=== PATIENT | male | born 1945 | race Hispanic/Latino ===

== ENCOUNTER 2020-07-06 18:05 | Observation (INO) | payer MEDICARE ==
[~2020-07-06] VITALS: Ht 170.2 cm; Wt 108.0 kg
[2020-07-06] VITALS: BP 145/71
[~2020-07-06 18:05] MED LIST: ADALAT CC30 MG OR; ALTOPREV20 MG PO; ANTI-FUNGAL12 TOP; ASPIRIN 81 LOW81 MG PO; ASPIRIN EC81 MG PO; BACLOFEN10 MG PO; BACTRIM DS1 TAB PO; BLOOD GLUCOSE TEST S SC; BYDUREON2 MG; COREG6.25 MG PO; DEBROX6.5 % AS; EC-NAPROSYN500 MG PO; FLUCONAZOLE100 MG PO; JANUVIA50 MG PO; KENALOG-4040 MG/ML IA; LISINOPRIL20 M1 PO; LORTAB5 PO; LOSARTAN/HCT1 TA2 PO; LOVASTATIN10 M1 PO; METFORMIN HCL1000 MG PO; METFORMIN500 MG PO; NAPROSYN500 MG PO; NO MEDS; PANTOPRAZOLE SO40 MG PO; PERCOCET 5/325M1 TAB PO; TRIAM/NYSTAT EX; VALSARTAN40 MG PO; [UNRECOGNIZED DRUG - OTHER] PO; statin
[2020-07-06 19:25] LABS: HEMATOCRIT 45.5 % (39.0-50.0); HEMOGLOBIN 15.5 g/dl (14.0-18.0); IMMATURE GRANULOCYTES 0.5 % (0.0-5.0); MEAN CELL VOLUME 87.3 fL CALC (80.0-100.0); MEAN CORPUSCULAR HGB 29.8 pG CALC (26.0-32.0); MEAN CORPUSCULAR HGB CONC 34.1 g/dL CAL (32.0-36.0); NEUT# 9.71 thou/uL (1.82-7.42); RED BLOOD COUNT 5.21 mill/uL (4.70-6.10); RED CELL DISTRI WIDTH 13.1 % (11.5-15.5)
[2020-07-06 19:43] LABS: ALBUMIN 3.8 g/dL (3.2-5.0); ALKALINE PHOSPHATASE 71 u/l (38-126); BUN 15 mg/dL (8-23); BUN/CREATININE RATIO 22 (12-20 (CALC)); CARBON DIOXIDE 22 mmol/l (22-30); CHLORIDE 95 mmol/l (95-108); CREATININE 0.7 mg/dL (0.7-1.3); GFR > 60 ML/MIN (>=60 (CALC)); GFR FOR AFR.AMER. > 60 ML/MIN (>=60 (CALC)); TOTAL PROTEIN 7.1 g/dL (6.3-8.2)
[2020-07-06 19:50] LABS: ANION GAP 15 (6-22 (CALC)); BILIRUBIN, TOTAL 0.9 mg/dL (0.0-1.4); POTASSIUM 3.3 mmol/l (3.5-5.1); SGOT/AST 46 u/l (19-48); SODIUM 129 mmol/l (137-146)
[2020-07-06 21:30] VITALS: BP 141/75
[2020-07-06 21:45] VITALS: BP 138/74
[2020-07-06 22:00] VITALS: BP 148/77
[2020-07-06 23:00] VITALS: BP 121/64
[2020-07-07] VITALS (11 sets, daily range): BP systolic 103–157; BP diastolic 49–84
[2020-07-07 04:38] LABS: HEMATOCRIT 41.7 % (39.0-50.0); HEMOGLOBIN 14.1 g/dl (14.0-18.0); IMMATURE GRANULOCYTES 0.5 % (0.0-5.0); MEAN CORPUSCULAR HGB 29.7 pG CALC (26.0-32.0); MEAN CORPUSCULAR HGB CONC 33.8 g/dL CAL (32.0-36.0); NEUT# 5.73 thou/uL (1.82-7.42); RED BLOOD COUNT 4.74 mill/uL (4.70-6.10)
[2020-07-07 05:01] LABS: BUN 19 mg/dL (8-23); BUN/CREATININE RATIO 29 (12-20 (CALC)); C-REACTIVE PROTEIN 5.3 mg/dL (0-0.9); CARBON DIOXIDE 24 mmol/l (22-30); CHLORIDE 99 mmol/l (95-108); CREATININE 0.6 mg/dL (0.7-1.3); GFR > 60 ML/MIN (>=60 (CALC)); GFR FOR AFR.AMER. > 60 ML/MIN (>=60 (CALC)); SODIUM 131 mmol/l (137-146)
[2020-07-07 05:02] LABS: ANION GAP 13 (6-22 (CALC)); POTASSIUM 4.6 mmol/l (3.5-5.1)
[2020-07-07 06:27] LABS: URINE BILIRUBIN - DIPSTICK NEGATIVE (NEGATIVE); URINE BLOOD DIPSTICK NEGATIVE (NEGATIVE); URINE COLOR YELLOW; URINE GLUCOSE - DIPSTICK 500 mg/dL (NEGATIVE); URINE KETONE TRACE mg/dL (NEGATIVE); URINE LEUK ESTERASE NEGATIVE (NEGATIVE); URINE NITRITE - DIPSTICK NEGATIVE (Negative); URINE PROTEIN - DIPSTICK 100 mg/dL (NEG-TRACE); URINE SPECIFIC GRAVITY >=1.030; URINE UROBILINOGEN - DIPSTICK 0.2 E.U./dL (0.2)
[2020-07-07 06:34] LABS: URINE EPITHELIAL CELLS MODERATE EPI/hpf (0-FEW); URINE RBC 0-2 RBC/hpf (0-5)
[2020-07-07 06:35] LABS: URINE BACTERIA FEW hpf; URINE MUCUS MANY hpf (NONE-FEW)
[2020-07-08 02:06] VITALS: BP 128/68
[2020-07-08 06:07] LABS: HEMOGLOBIN 13.6 g/dl (14.0-18.0); IMMATURE GRANULOCYTES 0.8 % (0.0-5.0); MEAN CELL VOLUME 89.9 fL CALC (80.0-100.0); MEAN CORPUSCULAR HGB 29.8 pG CALC (26.0-32.0); MEAN CORPUSCULAR HGB CONC 33.2 g/dL CAL (32.0-36.0); NEUT# 8.34 thou/uL (1.82-7.42); RED BLOOD COUNT 4.56 mill/uL (4.70-6.10); RED CELL DISTRI WIDTH 13.2 % (11.5-15.5)
[2020-07-08 06:38] LABS: ALKALINE PHOSPHATASE 63 u/l (38-126); ANION GAP 11 (6-22 (CALC)); BILIRUBIN, TOTAL 0.7 mg/dL (0.0-1.4); BUN 27 mg/dL (8-23); BUN/CREATININE RATIO 39 (12-20 (CALC)); CARBON DIOXIDE 24 mmol/l (22-30); CHLORIDE 103 mmol/l (95-108); CREATININE 0.7 mg/dL (0.7-1.3); GFR > 60 ML/MIN (>=60 (CALC)); GFR FOR AFR.AMER. > 60 ML/MIN (>=60 (CALC)); POTASSIUM 4.3 mmol/l (3.5-5.1); SGOT/AST 24 u/l (19-48); SODIUM 133 mmol/l (137-146)
[2020-07-08 06:43] LABS: ALBUMIN 2.8 g/dL (3.2-5.0); TOTAL PROTEIN 5.5 g/dL (6.3-8.2)
[2020-07-08 08:00] VITALS: BP 150/60
[2020-07-08 15:10] VITALS: BP 150/74
[2020-07-08 18:52] VITALS: BP 148/71
[2020-07-09 04:00] VITALS: BP 156/84
[2020-07-09 05:12] LABS: HEMATOCRIT 41.6 % (39.0-50.0); HEMOGLOBIN 13.7 g/dl (14.0-18.0); IMMATURE GRANULOCYTES 0.3 % (0.0-5.0); MEAN CELL VOLUME 89.3 fL CALC (80.0-100.0); MEAN CORPUSCULAR HGB 29.4 pG CALC (26.0-32.0); MEAN CORPUSCULAR HGB CONC 32.9 g/dL CAL (32.0-36.0); NEUT# 7.09 thou/uL (1.82-7.42); RED BLOOD COUNT 4.66 mill/uL (4.70-6.10); RED CELL DISTRI WIDTH 13.3 % (11.5-15.5)
[2020-07-09 05:40] LABS: ALBUMIN 2.8 g/dL (3.2-5.0); ALKALINE PHOSPHATASE 61 u/l (38-126); ANION GAP 12 (6-22 (CALC)); BILIRUBIN, TOTAL 0.8 mg/dL (0.0-1.4); BUN 26 mg/dL (8-23); BUN/CREATININE RATIO 40 (12-20 (CALC)); C-REACTIVE PROTEIN 1.7 mg/dL (0-0.9); CARBON DIOXIDE 23 mmol/l (22-30); CHLORIDE 103 mmol/l (95-108); CREATININE 0.6 mg/dL (0.7-1.3); GFR > 60 ML/MIN (>=60 (CALC)); GFR FOR AFR.AMER. > 60 ML/MIN (>=60 (CALC)); POTASSIUM 4.2 mmol/l (3.5-5.1); SGOT/AST 25 u/l (19-48); SODIUM 134 mmol/l (137-146); TOTAL PROTEIN 5.6 g/dL (6.3-8.2)
[2020-07-09 08:00] VITALS: BP 154/78
[2020-07-09 09:23] VITALS: BP 154/78
[2020-07-09] MEDS ORDERED: DECADRON6 MG PO (10:35)
[2020-07-09] MEDS ORDERED: ZITHROMAX250 MG PO (10:36)
== END 2020-07-09 12:06 | disposition home or self-care (01) ==
LOC: ED 18:05 → ED-I 18:58 → ED 18:58 → ED-I 19:50 → ED 20:12 → ICU 20:13 → MS2 07-07 12:21
PROVIDERS: Nurse Practitioner; ADMIT Internal Medicine; ATTEND Internal Medicine
PROC: XW033E5 Introduction of Remdesivir Anti-infective into Peripheral Vein, Percutaneous Approach, New Technology Group 5 (ICD-10-PCS; principal; 2020-07-07)
DX: U07.1 COVID-19 (principal); J12.82 Pneumonia due to coronavirus disease 2019; J96.01 Acute respiratory failure with hypoxia; E87.6 Hypokalemia; I10 Essential (primary) hypertension; E11.65 Type 2 diabetes mellitus with hyperglycemia; E78.5 Hyperlipidemia, unspecified; K21.9 Gastro-esophageal reflux disease without esophagitis; Z79.84 Long term (current) use of oral hypoglycemic drugs
CPT/HCPCS: J1650

== ENCOUNTER 2021-07-24 08:35 | Emergency (ER) | payer MEDICARE ==
[~2021-07-24] VITALS: Ht 170.2 cm; Wt 104.5 kg
[~2021-07-24 08:35] MED LIST changes: +DECADRON6 MG PO; +ZITHROMAX250 MG PO
[2021-07-24 08:50] VITALS: BP 170/80
[2021-07-24 09:01] VITALS: BP 166/81
[2021-07-24 09:16] VITALS: BP 165/76
[2021-07-24] MEDS ORDERED: (None)3.5 GM OD (09:17)
[2021-07-24] MEDS ORDERED: GENTAMICIN SULF5 ML OD (09:17)
[2021-07-24] MEDS ORDERED: CHLORTHALIDONE25 MG PO (09:29)
[2021-07-24] MEDS ORDERED: DIOVAN80 MG PO (09:30)
[2021-07-24] MEDS ORDERED: JARDIANCE25 MG PO (09:30)
[2021-07-24 09:31] VITALS: BP 159/74
[2021-07-24 09:46] VITALS: BP 156/74
[2021-07-24 10:00] VITALS: BP 156/74
== END 2021-07-24 10:00 | disposition home or self-care (01) ==
LOC: ED 08:35
DX: S05.01XA Injury of conjunctiva and corneal abrasion without foreign body, right eye, initial encounter (principal); I10 Essential (primary) hypertension; E11.9 Type 2 diabetes mellitus without complications; E78.5 Hyperlipidemia, unspecified; K21.9 Gastro-esophageal reflux disease without esophagitis; E66.01 Morbid (severe) obesity due to excess calories; W20.8XXA Other cause of strike by thrown, projected or falling object, initial encounter; Y93.H9 Activity, other involving exterior property and land maintenance, building and construction; Y92.009 Unspecified place in unspecified non-institutional (private) residence as the place of occurrence of the external cause; Z79.84 Long term (current) use of oral hypoglycemic drugs

== ENCOUNTER 2023-05-17 17:27 | Emergency (ER) | payer MEDICARE ==
[~2023-05-17] VITALS: Ht 170.2 cm; Wt 104.0 kg
[2023-05-17] VITALS (9 sets, daily range): BP systolic 156–189; BP diastolic 78–94
[~2023-05-17 17:27] MED LIST changes: +(None)3.5 GM OD; +CHLORTHALIDONE25 MG PO; +DIOVAN80 MG PO; +GENTAMICIN SULF5 ML OD; +JARDIANCE25 MG PO
[2023-05-17 18:43] LABS: BASO% 0.2 % (0-3); EOS% 5.5 % (0-8); HEMATOCRIT 47.1 % (39.0-50.0); HEMOGLOBIN 15.5 g/dl (14.0-18.0); IMMATURE GRANULOCYTES 0.2 % (0.0-5.0); LYMPH% 14.6 % (15-41); MEAN CELL VOLUME 94.8 fL CALC (80.0-100.0); MEAN CORPUSCULAR HGB 31.2 pG CALC (26.0-32.0); MEAN CORPUSCULAR HGB CONC 32.9 g/dL CAL (32.0-36.0); NEUT# 6.27 thou/uL (1.82-7.42); NEUT% 71.5 % (42-76); RED BLOOD COUNT 4.97 mill/uL (4.70-6.10); RED CELL DISTRI WIDTH 13.2 % (11.5-15.5)
[2023-05-17 19:01] LABS: D-DIMER 0.41 mg/L (0.19-0.60); INTERNATIONAL NORMALIZED RATIO 1.1 RATIO (0.7-1.3); PROTHROMBIN TIME 10.1 SECONDS (9.0-12.5)
[2023-05-17 19:06] LABS: ALBUMIN 4.6 g/dL (3.2-5.0); ALKALINE PHOSPHATASE 76 u/l (38-126); BILIRUBIN, TOTAL 0.6 mg/dL (0.2-1.3); BUN 19 mg/dL (8-23); BUN/CREATININE RATIO 18 (12-20 (CALC)); CHLORIDE 103 mmol/l (95-108); GFR FOR AFR.AMER. > 60 ML/MIN (>=60 (CALC)); GFR OTHER RACES > 60 ML/MIN (>=60 (CALC)); SGOT/AST 33 u/l (19-48); SODIUM 139 mmol/l (137-146)
[2023-05-17 19:12] LABS: ANION GAP 11 (6-22 (CALC)); CARBON DIOXIDE 29 mmol/l (22-30)
[2023-05-17 20:17] LABS: URINE BILIRUBIN - DIPSTICK Negative (NEGATIVE); URINE BLOOD DIPSTICK Negative (NEGATIVE); URINE GLUCOSE - DIPSTICK 500 mg/dL (NEGATIVE); URINE KETONE Negative (NEGATIVE); URINE LEUK ESTERASE Negative (NEGATIVE); URINE NITRITE - DIPSTICK Negative (Negative); URINE PH 5.5 (4.5-8.0); URINE PROTEIN - DIPSTICK Negative (NEG-TRACE); URINE UROBILINOGEN - DIPSTICK 0.2 E.U./dL (0.2)
[2023-05-17] MEDS ORDERED: ZPAK PO ×2 (20:19→21:00)
[2023-05-17 20:23] LABS: URINE COLOR Yellow
== END 2023-05-17 20:59 | disposition home or self-care (01) ==
LOC: ED 17:27
PROVIDERS: Emergency Medicine
DX: J06.9 Acute upper respiratory infection, unspecified (principal); I10 Essential (primary) hypertension; E11.9 Type 2 diabetes mellitus without complications; E66.01 Morbid (severe) obesity due to excess calories; K21.9 Gastro-esophageal reflux disease without esophagitis; E78.5 Hyperlipidemia, unspecified; Z79.84 Long term (current) use of oral hypoglycemic drugs; Z20.822 Contact with and (suspected) exposure to COVID-19; R06.02 Shortness of breath